=== PATIENT | male | born 1990 | race American Indian/Alaskan Native ===

== ENCOUNTER 2017-11-29 10:41 | Emergency (ER) | payer OTHER, BC ==
[~2017-11-29] VITALS: Ht 188 cm; Wt 133.8 kg
== END 2017-11-29 13:40 | disposition home or self-care (01) ==
LOC: ER 10:41
DX: M48.07 Spinal stenosis, lumbosacral region (principal); W01.0XXA Fall on same level from slipping, tripping and stumbling without subsequent striking against object, initial encounter
CPT/HCPCS: 72100; 96372; 99283; J1885